=== PATIENT | male | born 1965 | race Asian ===

== ENCOUNTER 2017-07-21 11:12 | Observation (INO) | payer OTHER ==
--- NOTE | 2017-07-21 11:22 | PDOC ---
History of Present Illness - General Chief Complaint: CVA/TIA Stated Complaint: NUMBNESS TO RIGHT SIDE FROM TOES UP Time Seen by Provider: 07/21/17 11:20 - History of Present Illness Initial Comments: 07/21/17 13:15 Chief complaint: Numbness History of present illness: This is a 51-year-old gentleman with no past medical history who presents to the emergency department with 1 day history of decreased sensation to his right upper and right lower extremity. Yesterday evening had approximately a 40 minute episode where he felt his "speech did not sound right". No headache no blurry vision or double vision no chest pain or shortness of breath no weakness NIH Stroke Scale - Last Known Well Date/Time & Onset Date Last Known Well: 07/20/17 - Initial Evaluation Level of consciousness: Alert Ask patient the month and their age: Answers both correctly Ask patient to open & close eyes; make fist and let go: Obeys both correctly Best gaze (horizontal eye movement): Normal Visual field testing: No visual field loss Facial paresis (Show teeth/raise eyebrows/close eyes tight): Normal symmetrical movement Motor Function: Left Arm: Normal Motor Function: Right Arm: Normal (extends arm 90 (or 45) degrees for 10 seconds without drift Motor Function: Left Leg: Normal (extends leg 30 degrees for 5 seconds without drift) Motor Function: Right Leg: Normal (extends leg 30 degrees for 5 seconds without drift) Limb Ataxia: No ataxia Sensory(Use pinprick test arms,legs,trunk,face/side to side): Mild to moderate decrease in sensation Best language (Describe picture, name items, read sentences): No Aphasia Dysarthria (read several words): Normal articulation Extinction and Inattention: No abnormality - Total Score NIH Stroke Scale Score: 1 Past History - Past Medical History Allergies/Adverse Reactions: Allergies Allergy/AdvReac Type Severity Reaction Status Date / Time No Known Allergies Allergy Unverified 07/21/17 11:24 Home Medications: Ambulatory Orders NK [No Known Home Medication] 07/21/17 Review of Systems - Review of Systems Comments:: 07/21/17 13:16 ROS: A complete review of 10 out of 10 review of systems is taken and is negative apart from what is previously mentioned below and in the HPI. *Physical Exam - Physical Exam Comments: 07/21/17 13:16 Vitals: Triage Vital signs reviewed General Appearance: no acute distress, well nourished well developed, Head: Atraumatic, Eyes: Pupils equal reactive round, extraocular movement intact Neck: Supple;No Nucal rigidity Chest Wall: Nontender Cardiac: Regular rate and rhythym, no murmurs, no rubs, no gallops, Lungs: Clear to auscultation bilateral, good air movement bilaterally, Abdomen: Soft, non distended, normal bowel sounds, non tender to palpation Extremities: Full range of motion to all extremities, no cyanosis, clubbing, or edema Skin: Warm and dry, no rashes or lesions, no rash, no petechiae Neuro: AOX3; Cranial Nerves 2-12 grossly intact, Strength intact to all extremities, subjective decreased sensation to right upper extremity right lower extremity,gait normal Psych: normal mood, normal affect ED Treatment Course - LABORATORY CBC & Chemistry Diagram: 07/21/17 12:01 07/21/17 12:01 - RADIOLOGY Radiology Studies Ordered: Category Date Time Status HEAD CT (STROKE) [CT] Stat CT Scan 07/21/17 11:20 Ordered CHEST X-RAY PORTABLE* [RAD] Stat Radiology 07/21/17 11:21 Ordered Medical Decision Making - Medical Decision Making 07/21/17 13:17 NIHSS stroke scale score 1. We'll CT head labs EKG No acute findings on head CT. Case discussed with Dr. Macias neurology. Will observe overnight for MRI and neurology consultation Full dose aspirin given. *DC/Admit/Observation/Transfer Diagnosis at time of Disposition: Numbness - Discharge Dispostion Condition at time of disposition: Stable Admit: Yes - Referrals - Patient Instructions - Post Discharge Activity
[2017-07-21] MEDS ORDERED: SODIUM CHLORIDE 1,000 ML IV SCH (11:30)
[2017-07-21 12:16] LABS: BASO % 0.7 % (0-2.0); EOS % 1.4 % (0-4.5); HEMATOCRIT 48.2 % (35.4-49); HEMOGLOBIN 16.1 GM/dl (11.7-16.9); MCH 31.3 pg (25.7-33.7); MCHC 33.3 g/dl (32.0-35.9); MEAN CELL VOLUME 93.9 fl (80-96); MEAN PLT VOLUME 9.2 fl (7.5-11.1); NEUT % 55.9 % (42.8-82.8); PLATELET COUNT 220 K/MM3 (134-434); RBC 5.14 M/mm3 (4.00-5.60); RDW 12.3 % (11.9-15.9); WHITE BLOOD COUNT 7.3 K/mm3 (4.0-10.8)
[2017-07-21 12:20] LABS: INR 1.02 (0.82-1.09); PROTHROMBIN TIME (PATIENT) 11.4 SEC (10.2-13.0)
[2017-07-21 12:31] LABS: ALBUMIN 4.2 g/dl (3.5-5.0); ALK PHOS 64 U/L (32-92); ANION GAP 8 (8-16); BILIRUBIN,TOTAL 0.9 mg/dl (0.2-1.0); BLOOD UREA NITROGEN 16 mg/dl (7-18); CALCIUM 9.3 mg/dl (8.4-10.2); CHLORIDE 105 mmol/L (98-107); CHOLESTEROL 213 mg/dl; CO2 23 mmol/L (22-28); CREATININE 1.2 mg/dl (0.6-1.3); GLUCOSE,RANDOM 88 mg/dl (74-106); HDL CHOLESTEROL 35 mg/dl (29-89); POTASSIUM 4.1 mmol/L (3.5-5.1); SGOT/AST 25 U/L (10-42); SGPT/ALT 41 U/L (10-40); SODIUM 136 mmol/L (136-145); TOT PROT 6.9 g/dl (6.4-8.3); TRIGLYCERIDES 434 mg/dl (35-160)
[2017-07-21] MEDS ORDERED: ASPIRIN 325 MG ENTERIC COATED TABLET (FP) PO ONE (13:50)
[2017-07-21] MEDS ORDERED: ACETAMINOPHEN 325 MG TABLET (FP) PO PRN (13:53)
[2017-07-21] MEDS ORDERED: ZOLPIDEM TARTRATE 5 MG TABLET PO PRN (13:53)
[2017-07-21] MEDS ORDERED: ASPIRIN 325 MG TABLET ONE (13:56)
[2017-07-21 14:11] LABS: URINE APPEARANCE Clear; URINE BILIRUBIN Negative (NEGATIVE); URINE BLOOD Negative (NEGATIVE); URINE GLUCOSE (UA) Negative (NEGATIVE); URINE KETONE Negative (NEGATIVE); URINE NITRITE Negative (NEGATIVE); URINE PROTEIN Negative (NEGATIVE); URINE UROBILINOGEN 0.2 (0.2-1.0)
[2017-07-21 14:12] LABS: URINE COLOR YELLOW
--- NOTE | 2017-07-21 14:54 | EKG ---
Test Reason : Blood Pressure : / mmHG Vent. Rate : 082 BPM Atrial Rate : 082 BPM P-R Int : 158 ms QRS Dur : 100 ms QT Int : 376 ms P-R-T Axes : 052 056 053 degrees QTc Int : 439 ms NORMAL SINUS RHYTHM NORMAL ECG NO PREVIOUS ECGS AVAILABLE Confirmed by DAMI GONSALVES MD ([id number]) on 07/21/2017 2:53:56 PM Referred By: DR MILLER Confirmed By:DAMI GONSALVES MD
[2017-07-21 15:50] LABS: LDL CHOLESTEROL (ONLY SJRH) 91 mg/dL (5-100)
--- NOTE | 2017-07-21 17:17 | CONSULT ---
Admitting History and Physical - Smoking History Smoking history: Never smoked Have you smoked in the past 12 months: No - Alcohol/Substance Use Hx Alcohol Use: No History - Admission Reason For Visit: CVA/TIA Speech Evaluation - Communication Secondary Language: WOLOF Communication: Yes: Within Normal Limits Oral Expression Ability: Yes: No Impairment - Speech Production Apraxia: No Able to Make Needs Known: Yes: WNL Intelligibility: Yes: WNL - Speech Characteristics Voice Loudness: Normal Voice Pitch: Yes: Normal Voice Phonatory-based Quality: Yes: Normal Speech Pattern: Normal Articulation: Yes: Precise Dysfluency: Yes: Tonic Rate of Speech: Intact - Language/Auditory Comprehension Follows: Yes: Complex Commands (WFL) Observation: Able to respond to yes/no queries: Yes, Yes/No Confusion: No, Comprehends Conversational Speech: Yes, Benefits from Slow Speech: No, Benefits from Repetiton: No, Benefits from Increased Volume of Speech: No - Language/Verbal Expression Able to Respond to Simple Queries: Yes: WNL Able to Communicate Wants and Needs: Yes: WNL Functional Communication Status: Yes: WNL Aware of Errors: Yes Attempts to Correct Errors: Yes Use of Gestures: No Written Expression: WFL Oral Expression: [place]ian as second language. WFL Reading Comprehension: WFL Calculations: not examined Attention: Yes: Intact - Memory/Perception intermission coordinator Memory: Yes: WNL Short Term Memory: Yes: WNL - Swallow Evaluation/Bedside Assessment Current Nutritional Intake: Regular, Thin Liquids Oral Secretions: Yes: WFL Tracheostomy Present: No Patient on Ventilator: No Dentition: Yes: Adequate Facial Symmetry at Rest: Symmetrical Facial Symmetry on Retraction: Symmetrical Facial Movement: Controlled Sensation: Normal Facial Comment: WFL for speech and swallow purposes. Jaw Position: Closed at Rest Against Resistance Opening: Normal Against Resistance Closing: Normal Pucker Lips: Normal Smile: Normal Lips, Comment: WFL for speech and swallow purposes. Lingual Movement: Normal Lingual Speed of Movement: Normal Lingual Movement Strgth Against Opposition: Normal Lingual Movement Characteristics: Normal Lingual Comment: WFL for speech and swallow purposes. Soft Palate Description: Normal Color Hard Palate Description: Normal Color Gag Reflex: Strong Bite Reflex: Present Velopharyngeal Movement: Normal Laryngeal Elevation: WFL Laryngeal Movement: Able to Palpate Needs Assistance: No Rate of Intake: WFL Bolus Size: WFL Labial Seal: WFL Chewing: WFL Oral Prep Time: WFL A-P Transit: WFL Pocketing: None Timing of Swallow: WFL Coughing/Throat Clear: No Change in Voice: No Other Findings/Remarks: 51 yo male seen at chairside on unit for swallow eval to rule out dysphagia. Pt is verbal, A&Ox3 cooperative Namibian as second language. CC: speech slurred. Pt admitted to [facility] possible CVA/TIA numbness to right side (resolved ). Good airway protection. Vocal quality is WNF. Pt passed dysphagia screen in the ER. Current diet regular solids with thin liquids. Pt given po trials of pureed, soft and regular diet without assistance revealed good acceptance. adequate mastication, bolus formation and transfer. Pharyngeal swallow appears timely with no cough or changes in respiration or voicing. Thin liquids trials, unassisted via cup and straw were unremarkable for dysphagia at this time. Recommendations - Speech Evaluation, Impression/Plan Impression: 51 year old male presents with no s/s of dysphagia for solids and liquids at this time. Speech is rapid but WNL. Mcc Goals: Tolerate the least restrictive diet without s/s of aspiration. Short Term Goals: Tolerate regular solids and thin liquids without s/s of dysphagia and / or aspiration. - Dysphagia Impressions/Plan Swallowing Skills: WFL Dysphagia Impressions: No Impairment Dysphagia Treatment Plan: Safe Rate, OOB for meals, OOB for 1 h. after meals Dysphagia Evaluation Summary: This 51 yo male is able to tolerate regular solids and thin liquids without s/s of aspiration at this time. Recommendations : Continue regular diet and thin liquids as tolerated. Result given verbally to charge attendant Mari and to pcp via chart. - Recommendations Diet Consistency: Regular Medication Administration: Whole with water Liquids: Thin Liquids
[2017-07-21 17:25] VITALS: BMI 27.3
--- NOTE | 2017-07-22 06:53 | HP ---
CHIEF COMPLAINT: right sided sensation loss PCP: not here HISTORY OF PRESENT ILLNESS: This is a 51 year old male who presented to the Emergency Department yesterday with decreased sensation to the right arm and leg. He also reports his speech did not sound right the night before. Upon exam he reports relief of symptoms. He feels that his symptoms may be due to stress or prolonged work on his computer while sitting. ER course was notable for: (1) CT head unremarkable (2) labs unremarkable Recent Travel: pt denies PAST MEDICAL HISTORY: pt denies PAST SURGICAL HISTORY: pt denies Social History: Smoking: pt denies Alcohol: pt denies Drugs: pt denies Family History: mother age 65, "heart problems" father age 74, old age 2 sisters, 1 brother with no medical problems Allergies No Known Allergies Allergy (Unverified 07/21/17 11:24) HOME MEDICATIONS: 3 Medication Instructions Recorded NK [No Known Home Medication] 07/21/17 REVIEW OF SYSTEMS CONSTITUTIONAL: Absent: fever, chills, diaphoresis, generalized weakness, malaise, loss of appetite, weight change HEENT: Absent: rhinorrhea, nasal congestion, throat pain, throat swelling, difficulty swallowing, mouth swelling, ear pain, eye pain, visual changes CARDIOVASCULAR: Absent: chest pain, syncope, palpitations, irregular heart rate, lightheadedness , peripheral edema RESPIRATORY: Absent: cough, shortness of breath, dyspnea with exertion, orthopnea, wheezing, stridor, hemoptysis GASTROINTESTINAL: Absent: abdominal pain, abdominal distension, nausea, vomiting, diarrhea, constipation, melena, hematochezia GENITOURINARY: Absent: dysuria, frequency, urgency, hesitancy, hematuria, flank pain, genital pain MUSCULOSKELETAL: Absent: myalgia, arthralgia, joint swelling, back pain, neck pain SKIN: Absent: rash, itching, pallor HEMATOLOGIC/IMMUNOLOGIC: Absent: easy bleeding, easy bruising, lymphadenopathy, frequent infections ENDOCRINE: Absent: unexplained weight gain, unexplained weight loss, heat intolerance, cold intolerance NEUROLOGIC: Present: focal weakness or paresthesias Absent: headache, dizziness, unsteady gait, seizure, mental status changes, bladder or bowel incontinence PSYCHIATRIC: Absent: anxiety, depression, suicidal or homicidal ideation, hallucinations. PHYSICAL EXAMINATION Vital Signs - 24 hr 3 01/02/18 01/02/18 01/02/18 11:16 12:02 12:30 Temperature 97.5 F L Pulse Rate 87 Pulse Rate [ 68 Left Radial] Respiratory 16 16 Rate Blood Pressure 144/77 Blood Pressure 122/80 [Right Arm] O2 Sat by Pulse 100 99 99 Oximetry (%) 3 07/21/17 07/21/17 07/21/17 07/21/17 07/22/17 14:11 16:55 20:24 22:00 05:00 Temperature 97.7 F 98.5 F 98.5 F 97.6 F Pulse Rate 74 72 78 71 Pulse Rate [ 66 Left Radial] Respiratory 16 16 16 20 20 Rate Blood Pressure 121/82 115/79 115/71 114/85 Blood Pressure 131/91 [Right Arm] O2 Sat by Pulse 99 Oximetry (%) GENERAL: Awake, alert, and fully oriented, in no acute distress. HEAD: Normal with no signs of trauma. EYES: Pupils equal, round and reactive to light, extraocular movements intact, sclera anicteric, conjunctiva clear. No lid lag. EARS, NOSE, THROAT: Ears normal, nares patent, oropharynx clear without exudates. Moist mucous membranes. NECK: Normal range of motion, supple without lymphadenopathy, JVD, or masses. LUNGS: Breath sounds equal, clear to auscultation bilaterally. No wheezes, and no crackles. No accessory muscle use. HEART: Regular rate and rhythm, normal S1 and S2 without murmur, rub or gallop. ABDOMEN: Soft, nontender, not distended, normoactive bowel sounds, no guarding, no rebound, no masses. No hepatomegaly or splenomegaly. MUSCULOSKELETAL: Normal range of motion at all joints. No bony deformities or tenderness. No CVA tenderness. UPPER EXTREMITIES: 2+ pulses, warm, well-perfused. No cyanosis. No clubbing. No peripheral edema. LOWER EXTREMITIES: 2+ pulses, warm, well-perfused. No calf tenderness. No peripheral edema. NEUROLOGICAL: Cranial nerves II-XII intact. Normal speech. Normal gait. no weakness, strength 5/5 x 4 limbs PSYCHIATRIC: Cooperative. Good eye contact. Appropriate mood and affect. SKIN: Warm, dry, normal turgor, no rashes or lesions noted, normal capillary refill. Laboratory Results - last 24 hr 3 07/21/17 07/21/17 07/21/17 12:01 12:01 12:01 WBC 7.3 RBC 5.14 Hgb 16.1 Hct 48.2 MCV 93.9 MCH 31.3 MCHC 33.3 RDW 12.3 Plt Count 220 MPV 9.2 Neutrophils % 55.9 Lymphocytes % 33.0 Monocytes % 9.0 Eosinophils % 1.4 Basophils % 0.7 PT with INR 11.4 INR 1.02 Sodium 136 Potassium 4.1 Chloride 105 Carbon Dioxide 23 Anion Gap 8 BUN 16 Creatinine 1.2 Creat Clearance w eGFR > 60 Random Glucose 88 Calcium 9.3 Total Bilirubin 0.9 AST 25 ALT 41 H Alkaline Phosphatase 64 Total Protein 6.9 Albumin 4.2 Triglycerides 434 H Cholesterol 213 Total LDL Cholesterol 91 HDL Cholesterol 35 Urine Color Urine Appearance Urine pH Ur Specific [place] Urine Protein Urine Glucose (UA) Urine Ketones Urine Blood Urine Nitrite Urine Bilirubin Urine Urobilinogen Ur Leukocyte Esterase Anti-A Titer Blood Type Antibody Screen 3 07/21/17 07/21/17 12:01 13:45 WBC RBC Hgb Hct MCV MCH MCHC RDW Plt Count MPV Neutrophils % Lymphocytes % Monocytes % Eosinophils % Basophils % PT with INR INR Sodium Potassium Chloride Carbon Dioxide Anion Gap BUN Creatinine Creat Clearance w eGFR Random Glucose Calcium Total Bilirubin AST ALT Alkaline Phosphatase Total Protein Albumin Triglycerides Cholesterol Total LDL Cholesterol HDL Cholesterol Urine Color Yellow Urine Appearance Clear Urine pH 5.0 Ur Specific [place] <= 1.005 Urine Protein Negative Urine Glucose (UA) Negative Urine Ketones Negative Urine Blood Negative Urine Nitrite Negative Urine Bilirubin Negative Urine Urobilinogen 0.2 Ur Leukocyte Esterase Negative Anti-A Titer Cancelled Blood Type Cancelled Antibody Screen Cancelled ECG: NORMAL SINUS RHYTHM NORMAL ECG NO PREVIOUS ECGS AVAILABLE Confirmed by DAMI GONSALVES MD ([id number]) on 07/21/2017 2:53:56 PM Radiology Reports: EXAM: Single AP view of the chest. Impression. No evidence of active pulmonary disease. Reported By: Jameson Mi MD 07/21/17 1157 EXAM: CT head without contrast. INDICATION: Slurred speech. Decreased sensation. IMPRESSION: No acute intracranial hemorrhage, mass effects, midline shift or hydrocephalus. No compelling evidence of acute transcortical infarction at this time. MRI is much more sensitive in detecting acute infarctions. These findings were discussed with Dr. Barreto at 11:45 AM on 07/21/2017. Reported By: Ángel Marques DO 01/02/18 1150 EXAM: MRI brain without contrast. IMPRESSION: 1. No evidence of acute or subacute infarction. No mass effect, midline shift or hydrocephalus. 2. 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 Reported By: Ángel Marques DO 07/21/17 1528 EXAM: Bilateral carotid Doppler ultrasound Impression: Intimal thickening and minimal plaque buildup at the right common carotid bifurcation and bulb without evidence of hemodynamically significant stenosis, bilaterally. Left common carotid bifurcation appears unremarkable. Reported By: James Lamas MD 07/21/17 1646 ASSESSMENT/PLAN: 51yM with no PMH presented to the ED yesterday with decreased sensation to the right arm and leg. He also reports his speech did not sound right the night before. Left sided weakness r/o TIA - MRI negative for acute infarct - US carotid negative - neuro consult pending - LDL 91, TGL 434, f/u with PCP re: lipid management L parotid gland lesion - outpatient workup and ENT consult. Pt made aware. DVT PPX - deferred as anticipated LOS less than 48h FEN - tolerating po - BMP this am - regular diet Dispo: Pt requires observation for management of his emergent condition. Likely DC home when cleared by neurology. Visit type - Emergency Visit Emergency Visit: Yes ED Registration Date: 07/21/17 Care time: The patient presented to the Emergency Department on the above date and was hospitalized for further evaluation of their emergent condition. - New Patient This patient is new to me today: Yes Date on this admission: 07/22/17 - Critical Care Critical Care patient: No
--- NOTE | 2017-07-22 08:59 | DS ---
Physical Exam: SUBJECTIVE: Patient seen and examined, reports left sided paresthesia has subsided, ambulatory at bedside, denies any chest pin or shortness of breath. OBJECTIVE:This is a 51 year old male who presented to the Emergency Department yesterday with decreased sensation to the right arm and leg. He also reports his speech did not sound right the night before. Upon exam he reports relief of symptoms. He feels that his symptoms may be due to stress or prolonged work on his computer while sitting. ER course was notable for: (1) CT head unremarkable (2) labs unremarkable Vital Signs Period Temp Pulse Resp BP Sys/Quintero Pulse Ox Last 24 Hr 97.5 F-98.5 F 66-87 16-20 114-144/71-91 95-100 PHYSICAL EXAM GENERAL: The patient is awake, alert, and fully oriented, in no acute distress. HEAD: Normal with no signs of trauma. EYES: PERRL, extraocular movements intact, sclera anicteric, conjunctiva clear. ENT: Ears normal, nares patent, oropharynx clear without exudates, moist mucous membranes. NECK: Trachea midline, full range of motion, supple. LUNGS: Breath sounds equal, clear to auscultation bilaterally, no wheezes, no crackles, no accessory muscle use. HEART: Regular rate and rhythm, S1, S2 without murmur, rub or gallop. ABDOMEN: Soft, nontender, nondistended, normoactive bowel sounds, no guarding, no rebound, no hepatosplenomegaly, no masses. EXTREMITIES: 2+ pulses, warm, well-perfused, no edema. NEUROLOGICAL: Cranial nerves II through XII grossly intact. Normal speech, gait not observed. PSYCH: Normal mood, normal affect. SKIN: Warm, dry, normal turgor, no rashes or lesions noted. LABS Laboratory Results - last 24 hr 07/21/17 07/21/17 07/21/17 12:01 12:01 12:01 WBC 7.3 RBC 5.14 Hgb 16.1 Hct 48.2 MCV 93.9 MCH 31.3 MCHC 33.3 RDW 12.3 Plt Count 220 MPV 9.2 Neutrophils % 55.9 Lymphocytes % 33.0 Monocytes % 9.0 Eosinophils % 1.4 Basophils % 0.7 PT with INR 11.4 INR 1.02 Sodium 136 Potassium 4.1 Chloride 105 Carbon Dioxide 23 Anion Gap 8 BUN 16 Creatinine 1.2 Creat Clearance w eGFR > 60 Random Glucose 88 Calcium 9.3 Total Bilirubin 0.9 AST 25 ALT 41 H Alkaline Phosphatase 64 Total Protein 6.9 Albumin 4.2 Triglycerides 434 H Cholesterol 213 Total LDL Cholesterol 91 HDL Cholesterol 35 Urine Color Urine Appearance Urine pH Ur Specific [place] Urine Protein Urine Glucose (UA) Urine Ketones Urine Blood Urine Nitrite Urine Bilirubin Urine Urobilinogen Ur Leukocyte Esterase Anti-A Titer Blood Type Antibody Screen 07/21/17 07/21/17 12:01 13:45 WBC RBC Hgb Hct MCV MCH MCHC RDW Plt Count MPV Neutrophils % Lymphocytes % Monocytes % Eosinophils % Basophils % PT with INR INR Sodium Potassium Chloride Carbon Dioxide Anion Gap BUN Creatinine Creat Clearance w eGFR Random Glucose Calcium Total Bilirubin AST ALT Alkaline Phosphatase Total Protein Albumin Triglycerides Cholesterol Total LDL Cholesterol HDL Cholesterol Urine Color Yellow Urine Appearance Clear Urine pH 5.0 Ur Specific [place] <= 1.005 Urine Protein Negative Urine Glucose (UA) Negative Urine Ketones Negative Urine Blood Negative Urine Nitrite Negative Urine Bilirubin Negative Urine Urobilinogen 0.2 Ur Leukocyte Esterase Negative Anti-A Titer Cancelled Blood Type Cancelled Antibody Screen Cancelled ECG: NORMAL SINUS RHYTHM NORMAL ECG NO PREVIOUS ECGS AVAILABLE Confirmed by DAMI GONSALVES MD ([id number]) on 07/21/2017 2:53:56 PM Radiology Reports: EXAM: Single AP view of the chest. Impression. No evidence of active pulmonary disease. Reported By: Jameson Mi MD 07/21/17 7203 EXAM: CT head without contrast. INDICATION: Slurred speech. Decreased sensation. IMPRESSION: No acute intracranial hemorrhage, mass effects, midline shift or hydrocephalus. No compelling evidence of acute transcortical infarction at this time. MRI is much more sensitive in detecting acute infarctions. These findings were discussed with Dr. Barreto at 11:45 AM on 07/21/2017. Reported By: Ángel Marques DO 07/21/17 1150 EXAM: MRI brain without contrast. IMPRESSION: 1. No evidence of acute or subacute infarction. No mass effect, midline shift or hydrocephalus. 2. 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 Reported By: Ángel Marques DO 07/21/17 1528 EXAM: Bilateral carotid Doppler ultrasound Impression: Intimal thickening and minimal plaque buildup at the right common carotid bifurcation and bulb without evidence of hemodynamically significant stenosis, bilaterally. Left common carotid bifurcation appears unremarkable. Reported By: James Lamas MD 07/21/17 0296 HOSPITAL COURSE: Patient was admitted from the emergency department to observation for left sided weakness, r/o TIA. MRI negative for acute infarct, US carotid negative, Dr Macias neurology consulted and followed. Patient declined echocardiogram, am lab work, and cardiology consult. Patient was noted to have left parotid gland lesion on MRI, discussed with patient, advised strict follow up with ENT, copy of MRI placed on disc and given to patient in hand. PLAN - pt declines echo and cardiology consult, advised strict follow up with cardiology, consult given to patient in hand - strict follow up with ENT - continue ASA daily Date of Admission:07/21/17 Date of Discharge: 07/22/17 Minutes to complete discharge: 45 Discharge Summary Reason For Visit: CVA/TIA Current Active Problems Numbness (Acute) Condition: Improved - Instructions Diet, Activity, Other Instructions: your mri of the brain was notable for a lesion to your parotid gland, it is very important that you follow up with ENT within 1 week. continue taking AsA 81mg daily as prescribed please follow up your pcp within 2 weeks please follow up with the hob grinder within 1 week if any new or persistent symptoms develop please return to the emergency department Referrals: Deven Lin MD [Staff Physician] - Homero Macias MD [Staff Physician] - 2 Weeks Mingo Krishnna MD [Staff Physician] - 1 Week Disposition: HOME - Home Medications Comprehensive Discharge Medication List: Ambulatory Orders NK [No Known Home Medication] 07/21/17 This patient is new to me today: Yes Date on this admission: 07/22/17 Emergency Visit: Yes ED Registration Date: 07/21/17 Care time: The patient presented to the Emergency Department on the above date and was hospitalized for further evaluation of their emergent condition. Critical Care patient: No - Discharge Referral Referred to [facility] No
[2017-07-22 09:03] VITALS: BP 114/62; PULSE 82; TEMP 98.1
[2017-07-22] MEDS ORDERED: ASPIRIN COATED 81 MG TABLET.EC PO SCH (10:00)
--- NOTE | 2017-07-22 12:21 | CONSULT ---
Consult - text type - Consultation Consultation Note: NEUROLOGY CONSULTATION is greatly appreciated: Events reviewed and Patient examined. Case discussed with Dr. Barreto, yesterday and Dr. Gonzalez, today. 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 No sig PMH. No meds. On he was reading outloud in [place] to his when "the words wouldn't come out." This lasted for about 20 mins and resolved. During the same time he developed numbness and tingling on the right side of his body which persisted causing him to come to the ER yesterday. CT of brain and MRI of brain (both reviewed) are normal. Carotid duplex doppler shows moderate plaque in the RIGHT ICA without sig hemodynamic changes. This AM Pt still has "mild" numbness on the right side but "needs to go home and care for his ." LANCE: Cor:reg. No bruits NEURO: MS/Speech: Normal CN II-XII: Normal Motor: No drift or tremor. Normal strength, tone and bulk. Normal reflexes. Toes downgoing. Coord: No FTN dystaxia. Sensory: Normal. Romberg Neg. Gait: Normal. IMP: Normal neurological exam. Possible Left cerebral TIA/minor CVA SUGGEST: Agree with ASA 325 mg daily after food. Check Cholesterol, lipoproteins, B12, Homocysteine Cardiology consult, echocardiogram, 72 hour halter monitor. [facility] F/U as out patient. Thank you very much, Homero Macias MD
== END 2017-07-22 11:05 | disposition home or self-care (01) ==
LOC: FER 11:12 → FM/S 14:34
PROVIDERS: ADMIT Hospitalist; ATTEND Nurse Practitioner Family
PROC: 3E0337Z Introduction of Electrolytic and Water Balance Substance into Peripheral Vein, Percutaneous Approach (ICD-10-PCS; principal; 2017-07-21)
DX: R20.0 Anesthesia of skin (principal); D11.0 Benign neoplasm of parotid gland
CPT/HCPCS: 36415; 70450-TC; 70551-TC; 71045-TC; 80053; 81003; 82465; 83718; 83721; 84478; 85025; 85610; 93005; 93880-TC; 99285-25; G0378